=== PATIENT | female | born 1970 | race Caucasian/White ===

== ENCOUNTER 2018-07-30 14:00 | Day surgery (SDC) | payer OTHER ==
[~2018-07-30] VITALS: Ht 175.3 cm; Wt 109.0 kg
[2018-07-30] MEDS ORDERED: LACTATED RINGERS 1,000 ML IV SCH (14:37)
[2018-07-30 14:39] VITALS: BP 114/78
[2018-07-30] MEDS ORDERED: BUPR150T6 PO (14:56)
[2018-07-30] MEDS ORDERED: DULOXETINE PO (14:56)
[2018-07-30] MEDS ORDERED: THYR90TA PO (14:56)
[2018-07-30] MEDS ORDERED: METHYLPHENIDATE PO (14:56)
[2018-07-30] MEDS ORDERED: ACETAMINOPHEN 500 MG TABLET ONE (14:58)
[2018-07-30] MEDS ORDERED: ONDANSETRON ODT 8 MG ONE (14:59)
[2018-07-30] MEDS ORDERED: PLEASE ENTER ALLERGIES MC SCH (15:00)
[2018-07-30] MEDS ORDERED: ACETAMINOPHEN 500 MG TABLET PO ONE (15:00)
[2018-07-30] MEDS ORDERED: ONDANSETRON ODT 8 MG PO ONE (15:00)
[2018-07-30 15:08] LABS: HCG UR SG 1.018 (1.003-1.030)
[2018-07-30] MEDS ORDERED: FENTANYL PF 250 MCG/5ML ONE (15:26)
[2018-07-30] MEDS ORDERED: MIDAZOLAM 1 MG/ML, 2ML ONE (15:26)
[2018-07-30] MEDS ORDERED: SCOPOLAMINE PATCH, 1.5MG PATCH.TD72 TD ONE ×2 (15:35→16:00)
[2018-07-30] MEDS ORDERED: BUPIVACAINE/PF 0.5% ONE (15:45)
[2018-07-30] MEDS ORDERED: LIDOCAINE 1%, 20ML ONE (15:45)
[2018-07-30] MEDS ORDERED: DEXAMETHASONE 4 MG/ML, 1ML ONE (16:09)
[2018-07-30] MEDS ORDERED: CEFAZOLIN 1,000 MG ONE (16:09)
[2018-07-30] MEDS ORDERED: PROPOFOL 10 MG/ML, 20ML ONE (16:09)
[2018-07-30] MEDS ORDERED: SUCCINYLCHOLINE 20 MG/ML, 10ML ONE (16:09)
[2018-07-30] MEDS ORDERED: ROCURONIUM 10MG/ML,5ML ONE (16:09)
[2018-07-30] MEDS ORDERED: ONDANSETRON 2MG/ML, 2ML IVPush PRN (17:00)
[2018-07-30] MEDS ORDERED: METOCLOPRAMIDE 5 MG/ML, 2ML IV PRN (17:00)
[2018-07-30] MEDS ORDERED: FENTANYL PF 100 MCG/2ML IV PRN (17:00)
[2018-07-30] MEDS ORDERED: MEPERIDINE/PF 25MG/0.5ML IVPush PRN (17:00)
[2018-07-30] MEDS ORDERED: HYDROmorphone 1 MG/ML, 1ML INJ IV PRN (17:00)
[2018-07-30] MEDS ORDERED: LABETALOL 5 MG/ML SYRINGE IV PRN (17:00)
[2018-07-30] MEDS ORDERED: OXYcodone 5 MG/5 ML ORAL.SOL UDC PO PRN (17:00)
[2018-07-30] MEDS ORDERED: KETOROLAC 30 MG/1 ML IV PRN (17:00)
[2018-07-30] MEDS ORDERED: ALBUTEROL SULFATE 2.5 MG/3 ML NPPB PRN (17:00)
[2018-07-30] MEDS ORDERED: hydrALAzine 20 MG/ML, 1ML IV PRN (17:00)
[2018-07-30] MEDS ORDERED: MEPERIDINE/PF 25MG/ML,1ML ONE (18:06)
[2018-07-30] MEDS ORDERED: PROMETHAZINE 25 MG/ML, 1ML ONE (18:22)
[2018-07-30] MEDS: PROMETHAZINE 25 MG/ML, 1ML IV PRN ×2 (18:26→18:38)
[2018-07-30] MEDS ORDERED: ONDANSETRON 2MG/ML, 2ML ONE (18:50)
== END 2018-07-30 20:18 | disposition home or self-care (01) ==
LOC: OR 14:00 → 4NOR 19:17 → OR 20:18
PROVIDERS: ATTEND Orthopaedic Surgery
DX: S92.351K Displaced fracture of fifth metatarsal bone, right foot, subsequent encounter for fracture with nonunion (principal); M24.671 Ankylosis, right ankle; M93.271 Osteochondritis dissecans, right ankle and joints of right foot; M65.871 Other synovitis and tenosynovitis, right ankle and foot; M25.871 Other specified joint disorders, right ankle and foot; I10 Essential (primary) hypertension; Z87.891 Personal history of nicotine dependence; Z85.828 Personal history of other malignant neoplasm of skin; Z82.3 Family history of stroke; Z82.61 Family history of arthritis; X58.XXXD Exposure to other specified factors, subsequent encounter
CPT/HCPCS: 27698; 28122; 28315; 28322; 29891; 29898; 64445; 64447; 73620; 81025; C1713; J0330; J0690; J1100; J2175; J2250; J2550; J2704; J3010; J7120; Q0162; 76000; G0378